=== PATIENT | male | born 1985 | race Caucasian/White ===

== ENCOUNTER 2017-08-27 15:23 | Inpatient (IN) ==
[2017-08-27] MEDS ORDERED: INSULIN REGULAR 100 UNIT/ML IV STA (15:32)
[2017-08-27 16:05] LABS: ABG HCO3 1.3 MMOL/L (20-26); ABG Oxygen Saturation 98.4 % (95-100); ABG PO2 167.9 MM HG (80-95); ABG TCO2 1.5 MMOL/L (23-27); Allen Test Positive; Pt O2 Delivery Device Room Air
[2017-08-27 16:12] LABS: ABG Base Excess -30.3 MMOL/L (-2.5-2.5)
[2017-08-27 16:15] LABS: ABG PCO2 6.9 MM HG (35-48); ABG PH 6.899 (7.35-7.45)
[2017-08-27 16:35] LABS: Basophils # 0.2 10*3/uL (0.0-0.2); Basophils % 0.8 % (0.0-0.8); Eosinophils % 0.1 % (0.00-10.9); Hematocrit 47.7 VOL% (42.0-52.0); Hemoglobin 15.6 GM/DL (14.0-18.0); Immature Granulocytes % 5.2 %; Immature Granulocytes Absolute 1.66 #; Lymphocytes # 3.2 10*3/uL (1.4-4.0); Mean Corpuscular HGB Conc 32.7 GM/DL (32-36); Mean Corpuscular Hemoglobin 31 PG (27-34); Mean Corpuscular Volume 93.9 FL (87-102); Mean Platelet Volume 10.4 FL (9.6-12.0); Monocytes # 1.4 10*3/uL (0.11-0.8); Monocytes % 4.3 % (1.7-12.7); Neutrophils # 25.4 10*3/uL (1.4-7.4); Neutrophils % 79.6 % (38.7-73.9); Platelet Count 319 T/CUMM (130-400); Red Blood Count 5.08 MC/CUMM (3.8-5.5); Red Cell Distribution Width 13.4 % (9.3-17.3); White Blood Count 31.8 T/CUMM (4-12)
[2017-08-27] MEDS ORDERED: SODIUM BICARBONATE 50 MEQ/50 ML VIAL IV STA (16:41)
[2017-08-27 16:49] LABS: INR 1.1; PT Patient Result 11.6 SECS; Partial Thromboplastin Time 28.9 SECS (0-40)
[2017-08-27 16:55] LABS: Alanine Aminotransferase 17 U/L (16-61); Albumin 3.3 G/DL (3.4-5.0); Alkaline Phosphatase 149 U/L (45-117); Aspartate Amino Transferase 27 U/L (0-37); Bilirubin,Total < 0.39 MG/DL (0.2-1.0); Blood Urea Nitrogen 34 MG/DL (7-18); Calcium 7.7 MG/DL (8.5-10.1); Sodium 136 MMOL/L (136-145)
[2017-08-27 16:58] LABS: Glucose 764 MG/DL (74-106)
[2017-08-27 17:02] LABS: Band Neutrophils 11 % (0-10); Lymphocytes 11 % (20-55); Segmented Neutrophils 77 % (50-85)
[2017-08-27 17:03] LABS: Platelet Estimate Normal; Total Cells Counted 100
[2017-08-27] MEDS ORDERED: INSULIN REGULAR 100 UNIT/ML IV ONE (17:47)
[2017-08-27] MEDS ORDERED: MAGNESIUM SULF RIDER 2 GM in PREMIX 1 EACH IV PRN (17:47)
[2017-08-27] MEDS ORDERED: SODIUM PHOSPHATE INJ 30 MMOL in SODIUM CHLORIDE 0.9% 250 ML IV PRN (17:47)
[2017-08-27] MEDS ORDERED: POTASSIUM CHLORIDE RIDER 10 MEQ in PREMIX 1 EACH IV PRN (17:47)
[2017-08-27] MEDS ORDERED: MAGNESIUM SULF RIDER 4 GM in PREMIX 1 EACH IV PRN (17:47)
[2017-08-27] MEDS ORDERED: SODIUM CHLORIDE 0.9% 1,000 ML IV ONE (17:47)
[2017-08-27] MEDS ORDERED: DEXTROSE 50% 25 GM/50 ML VIAL IV PRN ×2 (17:47)
[2017-08-27] MEDS ORDERED: SODIUM BICARB INJ 100 MEQ in STERILE WATER INJ 400 ML IV PRN (17:47)
[2017-08-27] MEDS ORDERED: NICOTINE 21 MG/24 HR PATCH TRANSDERM PRN (17:53)
[2017-08-27] MEDS ORDERED: MORPHINE 4 MG/1 ML VIAL IV PRN (17:53)
[2017-08-27] MEDS ORDERED: ACETAMINOPHEN 325 MG TABLET PO PRN (17:53)
[2017-08-27] MEDS ORDERED: SODIUM BICARBONATE 50 MEQ/50 ML SYRINGE IV ONE (18:15)
[2017-08-27 18:39] LABS: ABG HCO3 6.8 MMOL/L (20-26); ABG Oxygen Saturation 97.7 % (95-100); ABG TCO2 3.3 MMOL/L (23-27)
[2017-08-27 18:42] LABS: ABG PCO2 13.3 MM HG (35-48); ABG PH 7.031 (7.35-7.45)
[2017-08-27] MEDS: SODIUM CHLORIDE 0.9% 1,000 ML IV SCH ×2 (18:47→22:33)
[2017-08-27] MEDS: INSULIN REGULAR DRIP 100 ML IV SCH (19:40)
[2017-08-27 21:18] LABS: Lactic Acid 2.3 MMOL/L (0.4-2.0)
[2017-08-27 21:45] LABS: Osmolality,Calculated 304.5 MOS/KG (273-304); Potassium 3.9 MMOL/L (3.5-5.1)
[2017-08-27] MEDS: PIPERACILLIN/TAZOBACTAM 3,375 MG in SODIUM CHLORIDE 0.9% 100 ML IV SCH (22:06)
[2017-08-27] MEDS: ENOXAPARIN 40 MG/0.4 ML SYRINGE SUBCUT SCH (22:07)
[2017-08-27 22:16] LABS: Apearance,Urine Slightly Hazy (Clear); Bilirubin,Urine Negative (Negative); Blood, Urine Moderate mg/dL (Negative); Glucose,Urine (UA) >=500 mg/dL (Negative); Granular Casts,Urine 2 /LPF (0-1); Ketones,Urine 80 mg/dL (Negative); Mucus,Urine Occasional /LPF (Occasional); Nitrite,Urine Negative (Negative); Protein,Urine 30 MG/DL; RBC,Urine <1 /HPF (0-4); Transitional Epi Cells,Urine Occasional /HPF (<1); Urine Color Straw (Yellow); Urine Specific Gravity 1.014 (1.001-1.035); Urine Urobilinogen < 2.0 EU/DL (0.2-1.0); WBC,Urine 1 /HPF (0-6)
[2017-08-27 22:20] LABS: Barbiturates Screen,Urine Negative (Negative); Benzodiazepines Screen,Urine Negative (Negative); Cannabinoid Screen,Urine Positive (Negative); Opiate Screen,Urine Negative (Negative); Phencyclidine Screen,Urine Negative (Negative)
[2017-08-27] MEDS ORDERED: SODIUM CHLORIDE 0.9% 1,000 ML IV SCH (22:47)
[2017-08-28] MEDS: VANCOMYCIN INJ 1,000 MG in SODIUM CHLORIDE 0.9% 250 ML IV SCH ×3 (00:54→23:30)
[2017-08-28 02:52] LABS: Basophils # 0.1 10*3/uL (0.0-0.2); Basophils % 0.3 % (0.0-0.8); Hematocrit 37.1 VOL% (42.0-52.0); Hemoglobin 13.1 GM/DL (14.0-18.0); Immature Granulocytes % 3.3 %; Immature Granulocytes Absolute 0.61 #; Lymphocytes # 1.4 10*3/uL (1.4-4.0); Lymphocytes % 7.6 % (21.2-54.2); Mean Corpuscular HGB Conc 35.3 GM/DL (32-36); Mean Corpuscular Hemoglobin 31 PG (27-34); Mean Corpuscular Volume 86.3 FL (87-102); Mean Platelet Volume 10.1 FL (9.6-12.0); Monocytes # 0.8 10*3/uL (0.11-0.8); Monocytes % 4.3 % (1.7-12.7); Neutrophils # 15.6 10*3/uL (1.4-7.4); Neutrophils % 84.5 % (38.7-73.9); Platelet Count 189 T/CUMM (130-400); Red Cell Distribution Width 13.3 % (9.3-17.3); White Blood Count 18.5 T/CUMM (4-12)
[2017-08-28 03:06] LABS: Calcium 7.8 MG/DL (8.5-10.1); Osmolality,Calculated 289.8 MOS/KG (273-304); Potassium 3.7 MMOL/L (3.5-5.1)
[2017-08-28 03:51] LABS: Band Neutrophils 10 % (0-10); Lymphocytes 4 % (20-55); Platelet Estimate Normal; Segmented Neutrophils 83 % (50-85); Total Cells Counted 100
[2017-08-28 03:52] LABS: Burr Cells 1+
[2017-08-28 04:13] LABS: ABG Base Excess -17.4 MMOL/L (-2.5-2.5); ABG HCO3 11.8 MMOL/L (20-26); ABG Oxygen Saturation 97.6 % (95-100); ABG PH 7.315 (7.35-7.45); ABG PO2 89.9 MM HG (80-95); ABG TCO2 6.4 MMOL/L (23-27)
[2017-08-28 04:14] LABS: ABG PCO2 14.4 MM HG (35-48)
[2017-08-28] MEDS: PIPERACILLIN/TAZOBACTAM 3,375 MG in SODIUM CHLORIDE 0.9% 100 ML IV SCH ×3 (05:41→22:41)
[2017-08-28] MEDS: SODIUM CHLORIDE 0.45% 1,000 ML IV SCH ×2 (05:57→11:34)
[2017-08-28 06:47] LABS: Calcium 8.1 MG/DL (8.5-10.1); Osmolality,Calculated 302.1 MOS/KG (273-304)
[2017-08-28 06:56] LABS: Potassium 6.6 MMOL/L (3.5-5.1)
[2017-08-28] MEDS: PARoxetine 10 MG TABLET PO SCH (08:43)
[2017-08-28] MEDS: PANTOPRAZOLE 40 MG TABLET PO SCH (08:43)
[2017-08-28] MEDS: ENOXAPARIN 40 MG/0.4 ML SYRINGE SUBCUT SCH ×2 (08:43→20:14)
[2017-08-28 10:31] LABS: Albumin 2.8 G/DL (3.4-5.0); Bilirubin,Total 1.1 MG/DL (0.2-1.0); Calcium 8.1 MG/DL (8.5-10.1); Osmolality,Calculated 282.5 MOS/KG (273-304); Potassium 2.6 MMOL/L (3.5-5.1); Total Protein 5.6 G/DL (6.4-8.3)
[2017-08-28] MEDS: DEXT 5% NACL 0.45% KCL 20 MEQ 20 MEQ/1,000 ML BAG IV SCH ×4 (11:34→23:30)
[2017-08-28] MEDS ORDERED: POTASSIUM CHLORIDE 20 MEQ TABLET PO ONE ×2 (12:29→15:46)
[2017-08-28] MEDS ORDERED: GLUCAGON 1 MG VIAL IM PRN (12:30)
[2017-08-28] MEDS ORDERED: DEXTROSE 50% 25 GM/50 ML VIAL IV PRN (12:30)
[2017-08-28] MEDS ORDERED: POTASSIUM PHOSPHATE IV ONE (14:00)
[2017-08-28] MEDS ORDERED: SODIUM CHLORIDE 0.9% IV ONE (14:00)
[2017-08-28 14:48] LABS: Calcium 7.8 MG/DL (8.5-10.1); Osmolality,Calculated 275.8 MOS/KG (273-304); Potassium 2.8 MMOL/L (3.5-5.1)
[2017-08-28] MEDS: INSULIN REGULAR DRIP 100 ML IV SCH ×2 (15:05→23:43)
[2017-08-28 19:11] LABS: Calcium 7.7 MG/DL (8.5-10.1); Osmolality,Calculated 278.7 MOS/KG (273-304); Potassium 3.2 MMOL/L (3.5-5.1)
[2017-08-28 23:26] LABS: Calcium 7.6 MG/DL (8.5-10.1); Osmolality,Calculated 275.5 MOS/KG (273-304); Potassium 3.3 MMOL/L (3.5-5.1)
[2017-08-29 02:16] LABS: Calcium 7.9 MG/DL (8.5-10.1); Osmolality,Calculated 273.5 MOS/KG (273-304); Potassium 2.7 MMOL/L (3.5-5.1)
[2017-08-29] MEDS: DEXT 5% NACL 0.45% KCL 20 MEQ 20 MEQ/1,000 ML BAG IV SCH ×3 (03:28→09:15)
[2017-08-29] MEDS: PIPERACILLIN/TAZOBACTAM 3,375 MG in SODIUM CHLORIDE 0.9% 100 ML IV SCH (06:13)
[2017-08-29 07:32] LABS: Osmolality,Calculated 277.5 MOS/KG (273-304); Potassium 2.6 MMOL/L (3.5-5.1)
[2017-08-29] MEDS ORDERED: POTASSIUM CHLORIDE 20 MEQ TABLET PO ONE (08:03)
[2017-08-29] MEDS: PANTOPRAZOLE 40 MG TABLET PO SCH (09:14)
[2017-08-29] MEDS: PARoxetine 10 MG TABLET PO SCH (09:14)
[2017-08-29] MEDS: ENOXAPARIN 40 MG/0.4 ML SYRINGE SUBCUT SCH ×3 (09:14→21:06)
[2017-08-29] MEDS: INSULIN GLARGINE 100 UNIT/ML SUBCUT SCH ×2 (10:08→21:06)
[2017-08-29] MEDS: SODIUM CHLOR 0.9% KCL 40 MEQ 40 MEQ/1,000 ML BAG IV SCH ×2 (10:11→19:55)
[2017-08-29] MEDS: INSULIN LISPRO 100 UNIT/ML SUBCUT SCH ×4 (11:30→21:06)
[2017-08-29 14:04] LABS: Calcium 7.8 MG/DL (8.5-10.1); Osmolality,Calculated 277.7 MOS/KG (273-304); Potassium 2.9 MMOL/L (3.5-5.1)
[2017-08-30 05:59] LABS: Calcium 8.2 MG/DL (8.5-10.1); Osmolality,Calculated 274.4 MOS/KG (273-304)
[2017-08-30] MEDS ORDERED: POTASSIUM CHLORIDE 20 MEQ TABLET PO ONE (07:38)
[2017-08-30 07:53] LABS: Basophils % 0.3 % (0.0-0.8); Eosinophils % 0.1 % (0.00-10.9); Hematocrit 34.4 VOL% (42.0-52.0); Hemoglobin 12.3 GM/DL (14.0-18.0); Immature Granulocytes % 0.8 %; Immature Granulocytes Absolute 0.06 #; Lymphocytes # 1.7 10*3/uL (1.4-4.0); Lymphocytes % 22.8 % (21.2-54.2); Mean Corpuscular HGB Conc 35.8 GM/DL (32-36); Mean Corpuscular Hemoglobin 31 PG (27-34); Mean Corpuscular Volume 85.8 FL (87-102); Mean Platelet Volume 10.2 FL (9.6-12.0); Monocytes # 0.3 10*3/uL (0.11-0.8); Monocytes % 4.5 % (1.7-12.7); Neutrophils # 5.2 10*3/uL (1.4-7.4); Neutrophils % 71.5 % (38.7-73.9); Platelet Count 154 T/CUMM (130-400); Red Blood Count 4.01 MC/CUMM (3.8-5.5); Red Cell Distribution Width 13.8 % (9.3-17.3); White Blood Count 7.3 T/CUMM (4-12)
[2017-08-30] MEDS: INSULIN LISPRO 100 UNIT/ML SUBCUT SCH ×3 (07:54→13:01)
[2017-08-30] MEDS: INSULIN GLARGINE 100 UNIT/ML SUBCUT SCH (08:37)
[2017-08-30] MEDS: PARoxetine 10 MG TABLET PO SCH (08:38)
[2017-08-30] MEDS: PANTOPRAZOLE 40 MG TABLET PO SCH (08:38)
[2017-08-30] MEDS: ENOXAPARIN 40 MG/0.4 ML SYRINGE SUBCUT SCH (08:39)
[2017-08-30 14:54] VITALS: BP 119/85
== END 2017-08-30 15:00 | disposition home or self-care (01) | DRG 638 ==
LOC: N.ED 15:23 → SUATTDRO 17:46 → N.EDINP 17:46 → N.CC 18:30
PROVIDERS: ADMIT Hospitalist; ATTEND Family Medicine